=== PATIENT | female | born 1995 | race Caucasian/White ===

== ENCOUNTER → 2025-04-19 07:42 | Outpatient (REF) | payer BC, SELFPAY | LOC: PNTC 07:42 | PROVIDERS: ATTENDING PHYSICIAN Obstetrics & Gynecology | DX: O99.210 Obesity complicating pregnancy, unspecified trimester (principal); O99.320 Drug use complicating pregnancy, unspecified trimester | CPT/HCPCS: 76805 ==

== ENCOUNTER → 2025-05-29 07:36 | Outpatient (REF) | payer BC, SELFPAY | LOC: PNTC 07:36 | PROVIDERS: ATTENDING PHYSICIAN Obstetrics & Gynecology | DX: O99.210 Obesity complicating pregnancy, unspecified trimester (principal); O99.320 Drug use complicating pregnancy, unspecified trimester | CPT/HCPCS: 76811; 76817 ==

== ENCOUNTER → 2025-06-13 13:25 | Outpatient (REF) | payer BC, SELFPAY | LOC: PNTC 13:25 | PROVIDERS: ATTENDING PHYSICIAN Obstetrics & Gynecology | DX: Z34.00 Encounter for supervision of normal first pregnancy, unspecified trimester (principal) | CPT/HCPCS: 76815 ==

== ENCOUNTER → 2025-07-16 15:43 | Outpatient (REF) | payer BC, SELFPAY ==
--- NOTE | 2025-07-16 15:24 | PN.DIAED06 ---
Meal Plan - Gestational
- Breakfast
Gestational Diabetes Meal Plan Name: 2000 calories
Breakfast - Total Carbohydrate (grams): 45 (1 carb serving is 15 grams)
Breakfast - Starch Carbohydrate: 2
Breakfast - Fruit Carbohydrate: 0 (no fruit or juice before noon)
Breakfast - Milk Carbohydrate: 1
Breakfast - Nonstarchy Vegetables: Yes
Breakfast - Meat/Protein: 1 (1 protein serving = 1 oz/7 g)
Breakfast - Fat: 2 (1 fat serving = 5 oz)
- Morning Snack
Morning Snack - Total Carbohydrate (grams): 30
Morning Snack - Starch Carbohydrate: 1
Morning Snack - Fruit Carbohydrate: 0 (no fruit or juice before noon)
Morning Snack - Milk Carbohydrate: 1
Morning Snack - Nonstarchy Vegetables: Yes
Morning Snack - Meat/Protein: 0
Morning Snack - Fat: 0
- Lunch
Lunch - Total Carbohydrate (grams): 45
Lunch - Starch Carbohydrate: 1
Lunch - Fruit Carbohydrate: 1
Lunch - Milk Carbohydrate: 1
Lunch - Nonstarchy Vegetables: Yes
Lunch - Meat/Protein: 2
Lunch - Fat: 2
- Afternoon Snack
Afternoon Snack - Total Carbohydrate (grams): 30
Afternoon Snack - Starch Carbohydrate: 1
Afternoon Snack - Fruit Carbohydrate: 1
Afternoon Snack - Milk Carbohydrate: 0
Afternoon Snack - Nonstarchy Vegetables: Yes
Afternoon Snack - Meat/Protein: 1
Afternoon Snack - Fat: 0
- Dinner
Dinner - Total Carbohydrate (grams): 45
Dinner - Starch Carbohydrate: 2
Dinner - Fruit Carbohydrate: 1
Dinner - Milk Carbohydrate: 0
Dinner - Nonstarchy Vegetables: Yes
Dinner - Meat/Protein: 2
Dinner - Fat: 2
- Evening Snack
Evening Snack - Total Carbohydrate (grams): 45
Evening Snack - Starch Carbohydrate: 1
Evening Snack - Fruit Carbohydrate: 1
Evening Snack - Milk Carbohydrate: 1
Evening Snack - Nonstarchy Vegetables: Yes
Evening Snack - Meat/Protein: 1
Evening Snack - Fat: 0
--- NOTE | 2025-07-17 08:05 | PN.DE ---
Diabetes Education
- -
07/16/2025 GESTATIONAL DIABETES CONSULTATION
Met with patient today for medical nutrition therapy. G1, P0, currently at 29 weeks of gestation, with an SCAR of 09/29/2025.
Explained glucose metabolism in body and what occurs during to cause increase blood sugar. Discussed importance of keeping BS well controlled to avoid complications to the baby during and after (macrosomia, hypoglycemia). Discussed
macronutrients, provided with 2000 fermin GDM meal plan.
Discussed physical activity and importance in lowering glucose values, she states she walks occasionally. Encouraged her to walk daily for at least 30 minutes, especially after meals. She did not present with her Contour Next Gen glucometer,
states that [employer] is out of stock. She stated that she is going out of town until Wednesday tonight. I encouraged her to check at the [email or web address] where she is visiting, inquire about stock of Contour Next Gen supplies and request transfer of
prescription if they can fill the supplies prior to Wednesday. I provided a Contour Next sample kit and gave extra test strips and lancets totalling 20 each. Reviewed proper testing technique, testing sites and testing pattern. She is aware to test
FBS and 2 hr pp each meal. Expected results for FBS <95 mg/dl and 2 hr pp <120 mg/dl. Noted for blood sugar of 116mg/dl 1 hr after breakfast this morning. Log sheet provided for her to record results, she will send a 4-day meal log with all her FBG
and 2hr Post prandial glucose numbers to this office for review. In addition, she will send all her glucose readings [facility] every Wednesday.
She was encouraged to reach out should she require insulin.
== END ==
LOC: DES 15:43
PROVIDERS: ATTENDING PHYSICIAN Obstetrics & Gynecology
DX: O24.419 Gestational diabetes mellitus in pregnancy, unspecified control (principal)
CPT/HCPCS: 99078

== ENCOUNTER 2025-08-01 17:08 | Observation (INO) | payer BC, SELFPAY ==
[2025-08-01 17:27] VITALS: BP 151/103; BMI 36.6
[2025-08-01 18:08] LABS: Hematocrit 32.4 % (37.0-47.0); Hemoglobin 11.3 g/dL (12.0-16.0); Mean Corp Hgb Conc. 34.9 g/dL (33.0-37.0); Mean Corpuscular Volume 89.3 fL (81.0-99.0); Nucleated Red Blood Cells % 0 %; Platelet Count 287 10^3/uL (130-400); Red Cell Dist. Width 13.3 % (11.5-14.5)
[2025-08-01 18:20] LABS: ALT (SGPT) 24 U/L (0-35); AST (SGOT) 24 U/L (14-36); Albumin 3.4 g/dl (3.5-5.0); Alkaline Phosphatase 107 U/L (38-126); Blood Urea Nitrogen 10 mg/dl (7-17); Calcium 9.1 mg/dl (8.4-10.2); Carbon Dioxide 26 mmol/L (22-30); Chloride 103 mmol/L (98-107); Estimated Creatinine Clearance > 125 ml/min; Glucose 118 mg/dl (70-99); Potassium 4.1 mmol/L (3.5-5.1); Sodium 133 mmol/L (135-145); Total Protein 5.8 g/dl (6.3-8.2); eGFR > 60.00
[2025-08-01] MEDS: RHOGAM 300 MCG IM (21:17)
[2025-08-01 21:57] LABS: Glucose - Point of Care 146 mg/dl (70-99)
[2025-08-01] MEDS: HUMULIN N KWIKPEN 8 UNITS SC (22:03)
[2025-08-02 07:18] LABS: Glucose - Point of Care 106 mg/dl (70-99)
[2025-08-02] MEDS: PRENATAL PLUS 1 TABLET PO (10:00)
[2025-08-02] MEDS: ASPIR LOW (ENTERIC COATED) 81 MG PO (10:00)
== END 2025-08-02 10:32 | disposition home or self-care (01) ==
LOC: LDRP 17:08
PROVIDERS: ADMITTING PHYSICIAN Obstetrics & Gynecology
DX: O13.3 Gestational [pregnancy-induced] hypertension without significant proteinuria, third trimester (principal); Z3A.31 31 weeks gestation of pregnancy; O99.213 Obesity complicating pregnancy, third trimester; O24.414 Gestational diabetes mellitus in pregnancy, insulin controlled; Z23 Encounter for immunization
CPT/HCPCS: 76816; 80053; 82570; 82962; 84156; 85025; 86850; 86900; 86901; G0378; J2790

== ENCOUNTER → 2025-08-08 15:33 | Outpatient (REF) | payer BC, SELFPAY ==
[2025-08-08 16:41] LABS: Hematocrit 33.0 % (37.0-47.0); Hemoglobin 11.1 g/dL (12.0-16.0); Mean Corp Hgb Conc. 33.6 g/dL (33.0-37.0); Mean Corpuscular Volume 90.2 fL (81.0-99.0); Nucleated Red Blood Cells % 0 %; Platelet Count 257 10^3/uL (130-400); Red Cell Dist. Width 13.4 % (11.5-14.5)
[2025-08-08 16:44] LABS: Urine Character Clear (Clear)
[2025-08-08 16:56] LABS: Urine Squamous Cell >30 /LPF (Few)
[2025-08-08 16:57] LABS: Urine Red Blood Cell 0-2 /HPF (0-2); Urine White Cell 0-2 /HPF (0-5)
[2025-08-08 17:07] LABS: ALT (SGPT) 26 U/L (0-35); AST (SGOT) 24 U/L (14-36); Albumin 3.4 g/dl (3.5-5.0); Alkaline Phosphatase 121 U/L (38-126); Blood Urea Nitrogen 12 mg/dl (7-17); Calcium 9.0 mg/dl (8.4-10.2); Carbon Dioxide 26 mmol/L (22-30); Chloride 103 mmol/L (98-107); Glucose 119 mg/dl (70-99); Potassium 4.3 mmol/L (3.5-5.1); Sodium 131 mmol/L (135-145); Total Protein 5.9 g/dl (6.3-8.2); eGFR > 60.00
== END ==
LOC: PNTC 15:33
PROVIDERS: Student in an Organized Health Care Education/Training Program; ATTENDING PHYSICIAN Obstetrics & Gynecology
DX: O99.210 Obesity complicating pregnancy, unspecified trimester (principal); O24.424 Gestational diabetes mellitus in childbirth, insulin controlled
CPT/HCPCS: 36415; 59025; 76815; 80053; 81003; 81015; 82570; 84156; 85025

== ENCOUNTER → 2025-08-13 14:33 | Outpatient (REF) | payer BC, SELFPAY | LOC: PNTC 14:33 | PROVIDERS: ATTENDING PHYSICIAN Obstetrics & Gynecology | DX: O99.210 Obesity complicating pregnancy, unspecified trimester (principal); O24.419 Gestational diabetes mellitus in pregnancy, unspecified control | CPT/HCPCS: 59025; 76815 ==

== ENCOUNTER → 2025-08-16 15:30 | Outpatient (REF) | payer BC, SELFPAY ==
[2025-08-16 16:15] LABS: Hematocrit 32.6 % (37.0-47.0); Hemoglobin 11.2 g/dL (12.0-16.0); Mean Corp Hgb Conc. 34.4 g/dL (33.0-37.0); Mean Corpuscular Volume 88.8 fL (81.0-99.0); Nucleated Red Blood Cells % 0 %; Platelet Count 282 10^3/uL (130-400); Red Cell Dist. Width 13.6 % (11.5-14.5)
[2025-08-16 16:35] LABS: ALT (SGPT) 24 U/L (0-35); AST (SGOT) 20 U/L (14-36); Albumin 3.4 g/dl (3.5-5.0); Alkaline Phosphatase 133 U/L (38-126); Blood Urea Nitrogen 11 mg/dl (7-17); Calcium 9.1 mg/dl (8.4-10.2); Carbon Dioxide 23 mmol/L (22-30); Chloride 105 mmol/L (98-107); Glucose 108 mg/dl (70-99); Potassium 4.3 mmol/L (3.5-5.1); Sodium 131 mmol/L (135-145); Total Protein 5.9 g/dl (6.3-8.2); eGFR > 60.00
[2025-08-16 17:29] LABS: Urine Character Slightly Cloudy (Clear)
[2025-08-16 17:55] LABS: Urine Red Blood Cell 0-2 /HPF (0-2); Urine Urothelial Cell 0-2 /LPF (FEW)
== END ==
LOC: PNTC 15:30
PROVIDERS: Student in an Organized Health Care Education/Training Program; ATTENDING PHYSICIAN Obstetrics & Gynecology
DX: O99.210 Obesity complicating pregnancy, unspecified trimester (principal); O24.414 Gestational diabetes mellitus in pregnancy, insulin controlled
CPT/HCPCS: 36415; 59025; 80053; 81003; 81015; 82570; 84156; 85025

== ENCOUNTER → 2025-08-20 13:55 | Outpatient (REF) | payer BC, SELFPAY | LOC: PNTC 13:55 | PROVIDERS: ATTENDING PHYSICIAN Obstetrics & Gynecology | DX: O99.210 Obesity complicating pregnancy, unspecified trimester (principal); O24.414 Gestational diabetes mellitus in pregnancy, insulin controlled | CPT/HCPCS: 59025; 76816 ==

== ENCOUNTER → 2025-08-23 16:00 | Outpatient (REF) | payer BC, SELFPAY ==
[2025-08-23 16:26] LABS: Urine Character Clear (Clear)
[2025-08-23 16:27] LABS: Hematocrit 34.6 % (37.0-47.0); Hemoglobin 11.8 g/dL (12.0-16.0); Mean Corp Hgb Conc. 34.1 g/dL (33.0-37.0); Mean Corpuscular Volume 91.3 fL (81.0-99.0); Nucleated Red Blood Cells % 0 %; Platelet Count 308 10^3/uL (130-400); Red Cell Dist. Width 13.5 % (11.5-14.5)
[2025-08-23 16:46] LABS: ALT (SGPT) 24 U/L (0-35); AST (SGOT) 19 U/L (14-36); Albumin 3.4 g/dl (3.5-5.0); Alkaline Phosphatase 160 U/L (38-126); Blood Urea Nitrogen 9 mg/dl (7-17); Calcium 9.4 mg/dl (8.4-10.2); Carbon Dioxide 27 mmol/L (22-30); Chloride 103 mmol/L (98-107); Glucose 120 mg/dl (70-99); Potassium 4.8 mmol/L (3.5-5.1); Sodium 132 mmol/L (135-145); Total Protein 6.1 g/dl (6.3-8.2); eGFR > 60.00
[2025-08-23 17:02] LABS: Urine Red Blood Cell 0-2 /HPF (0-2); Urine Squamous Cell >30 /LPF (Few)
== END ==
LOC: PNTC 16:00
PROVIDERS: ATTENDING PHYSICIAN Obstetrics & Gynecology
DX: O99.210 Obesity complicating pregnancy, unspecified trimester (principal); O24.414 Gestational diabetes mellitus in pregnancy, insulin controlled
CPT/HCPCS: 36415; 59025; 80053; 81003; 81015; 82570; 84156; 85025

== ENCOUNTER → 2025-08-27 16:23 | Outpatient (REF) | payer BC, SELFPAY | LOC: PNTC 16:23 | PROVIDERS: ATTENDING PHYSICIAN Obstetrics & Gynecology | DX: O99.213 Obesity complicating pregnancy, third trimester (principal); O13.3 Gestational [pregnancy-induced] hypertension without significant proteinuria, third trimester; O24.414 Gestational diabetes mellitus in pregnancy, insulin controlled | CPT/HCPCS: 59025; 76815 ==

== ENCOUNTER → 2025-08-30 15:57 | Outpatient (REF) | payer BC, SELFPAY ==
[2025-08-30 16:38] LABS: Hematocrit 33.7 % (37.0-47.0); Hemoglobin 11.3 g/dL (12.0-16.0); Mean Corp Hgb Conc. 33.5 g/dL (33.0-37.0); Mean Corpuscular Volume 89.9 fL (81.0-99.0); Nucleated Red Blood Cells % 0 %; Platelet Count 289 10^3/uL (130-400); Red Cell Dist. Width 13.5 % (11.5-14.5)
[2025-08-30 17:03] LABS: ALT (SGPT) 27 U/L (0-35); AST (SGOT) 22 U/L (14-36); Albumin 3.4 g/dl (3.5-5.0); Alkaline Phosphatase 172 U/L (38-126); Blood Urea Nitrogen 13 mg/dl (7-17); Calcium 9.8 mg/dl (8.4-10.2); Carbon Dioxide 25 mmol/L (22-30); Chloride 103 mmol/L (98-107); Glucose 93 mg/dl (70-99); Potassium 4.0 mmol/L (3.5-5.1); Sodium 131 mmol/L (135-145); Total Protein 6.1 g/dl (6.3-8.2); eGFR > 60.00
[2025-08-30 17:25] LABS: Urine Character Clear (Clear)
[2025-08-30 18:02] LABS: Urine Squamous Cell >30 /LPF (Few)
[2025-08-30 18:03] LABS: Urine Red Blood Cell 0-2 /HPF (0-2); Urine White Cell 0-2 /HPF (0-5)
== END ==
LOC: PNTC 15:57
PROVIDERS: ATTENDING PHYSICIAN Obstetrics & Gynecology
DX: O99.213 Obesity complicating pregnancy, third trimester (principal); O24.414 Gestational diabetes mellitus in pregnancy, insulin controlled; O13.3 Gestational [pregnancy-induced] hypertension without significant proteinuria, third trimester
CPT/HCPCS: 36415; 59025; 80053; 81003; 81015; 82570; 84156; 85025

== ENCOUNTER → 2025-09-03 15:23 | Outpatient (REF) | payer BC, SELFPAY | LOC: PNTC 15:23 | PROVIDERS: ATTENDING PHYSICIAN Obstetrics & Gynecology | DX: O99.213 Obesity complicating pregnancy, third trimester (principal); O24.414 Gestational diabetes mellitus in pregnancy, insulin controlled; O13.3 Gestational [pregnancy-induced] hypertension without significant proteinuria, third trimester | CPT/HCPCS: 59025; 76815 ==

== ENCOUNTER → 2025-09-06 17:00 | Outpatient (REF) | payer BC, SELFPAY ==
[2025-09-06 17:53] LABS: Urine Character Clear (Clear)
[2025-09-06 18:00] LABS: Hematocrit 31.1 % (37.0-47.0); Hemoglobin 10.7 g/dL (12.0-16.0); Mean Corp Hgb Conc. 34.4 g/dL (33.0-37.0); Mean Corpuscular Volume 89.1 fL (81.0-99.0); Nucleated Red Blood Cells % 0 %; Platelet Count 304 10^3/uL (130-400); Red Cell Dist. Width 13.6 % (11.5-14.5)
[2025-09-06 18:01] LABS: Urine Red Blood Cell 0-2 /HPF (0-2); Urine Squamous Cell 26-30 /LPF (Few)
[2025-09-06 18:10] LABS: ALT (SGPT) 27 U/L (0-35); AST (SGOT) 24 U/L (14-36); Albumin 3.2 g/dl (3.5-5.0); Alkaline Phosphatase 181 U/L (38-126); Blood Urea Nitrogen 12 mg/dl (7-17); Calcium 9.1 mg/dl (8.4-10.2); Carbon Dioxide 21 mmol/L (22-30); Chloride 105 mmol/L (98-107); Glucose 140 mg/dl (70-99); Potassium 4.0 mmol/L (3.5-5.1); Sodium 133 mmol/L (135-145); Total Protein 5.8 g/dl (6.3-8.2); eGFR > 60.00
== END ==
LOC: PNTC 17:00
PROVIDERS: ATTENDING PHYSICIAN Obstetrics & Gynecology
DX: O99.213 Obesity complicating pregnancy, third trimester (principal); O24.414 Gestational diabetes mellitus in pregnancy, insulin controlled; O13.3 Gestational [pregnancy-induced] hypertension without significant proteinuria, third trimester
CPT/HCPCS: 36415; 59025; 80053; 81003; 81015; 82570; 84156; 85025

== ENCOUNTER → 2025-09-10 08:41 | Outpatient (REF) | payer BC, SELFPAY | LOC: PNTC 08:41 | PROVIDERS: ATTENDING PHYSICIAN Obstetrics & Gynecology | DX: O99.213 Obesity complicating pregnancy, third trimester (principal); O99.323 Drug use complicating pregnancy, third trimester; O24.414 Gestational diabetes mellitus in pregnancy, insulin controlled; O10.013 Pre-existing essential hypertension complicating pregnancy, third trimester | CPT/HCPCS: 59025; 76816 ==

== ENCOUNTER 2025-09-12 09:04 | Inpatient (IN) | payer BC, SELFPAY ==
[2025-09-12 09:14] VITALS: BMI 36.7
[2025-09-12 09:22] VITALS: BP 127/87
[2025-09-12] MEDS: LR 1000 IV ×2 (09:45→11:08)
[2025-09-12 10:07] LABS: Albumin 3.2 g/dl (3.5-5.0); Carbon Dioxide 24 mmol/L (22-30)
[2025-09-12 10:12] LABS: Hematocrit 32.4 % (37.0-47.0); Hemoglobin 11.1 g/dL (12.0-16.0); Mean Corp Hgb Conc. 34.3 g/dL (33.0-37.0); Mean Corpuscular Volume 90.8 fL (81.0-99.0); Nucleated Red Blood Cells % 0 %; Platelet Count 317 10^3/uL (130-400); Red Cell Dist. Width 13.6 % (11.5-14.5)
[2025-09-12 10:31] LABS: ALT (SGPT) 30 U/L (0-35); AST (SGOT) 27 U/L (14-36); Alkaline Phosphatase 198 U/L (38-126); Blood Urea Nitrogen 12 mg/dl (7-17); Calcium 9.1 mg/dl (8.4-10.2); Chloride 106 mmol/L (98-107); Estimated Creatinine Clearance > 125 ml/min; Glucose 87 mg/dl (70-99); Sodium 135 mmol/L (135-145); Total Protein 5.9 g/dl (6.3-8.2); eGFR > 60.00
[2025-09-12] MEDS: BRETHINE 250 MCG SC (10:34)
[2025-09-12 10:40] LABS: Potassium 4.1 mmol/L (3.5-5.1)
[2025-09-12] MEDS: TYLENOL 975 MG PO (11:02)
[2025-09-12] MEDS: BICITRA 30 ML PO (11:03)
[2025-09-12] MEDS: ANCEF 10 IV (11:03)
[2025-09-12] MEDS: PITOCIN 30 UNITS/NSS 500 ML IV (14:28)
[2025-09-12] MEDS: TORADOL 15 MG IV (18:37)
[2025-09-13] MEDS: TORADOL 15 MG IV ×3 (00:39→11:40)
[2025-09-13 05:35] LABS: Hematocrit 30.3 % (37.0-47.0); Hemoglobin 10.3 g/dL (12.0-16.0); Mean Corp Hgb Conc. 34.0 g/dL (33.0-37.0); Mean Corpuscular Volume 91.0 fL (81.0-99.0); Platelet Count 249 10^3/uL (130-400); Red Cell Dist. Width 13.4 % (11.5-14.5)
--- NOTE | 2025-09-13 07:11 | W.PN.ANS.POP ---
Anesthesia Post Operative
- Anesthesia Post Op Note
Vital Signs Stable-See Nursing Note: Yes
Airway Patent: Yes
Adequate Pain Control: Yes
Change in Mental Status: No
Current Postoperative Nausea & Vomiting: No
Anesthesia Complications: No
General Anesthetic Recall: No
Unplanned Admission: No
Post Op Hydration Adequate: Yes
[2025-09-13] MEDS: COLACE 100 MG PO ×2 (08:24→19:59)
[2025-09-13] MEDS: WELLBUTRIN XL (24 hour extended release) 150 MG PO (08:24)
[2025-09-13] MEDS: PRENATAL PLUS 1 TABLET PO (08:24)
[2025-09-13] MEDS: TYLENOL 650 MG PO ×2 (11:40→19:59)
[2025-09-13] MEDS: RHOGAM 300 MCG IM (16:41)
[2025-09-13] MEDS: PROCARDIA XL (EXTENDED RELEASE) 30 MG PO (16:42)
[2025-09-13] MEDS: MOTRIN 600 MG PO (19:59)
[2025-09-14] MEDS: TYLENOL 650 MG PO ×3 (02:27→19:53)
[2025-09-14] MEDS: MOTRIN 600 MG PO ×2 (02:28→15:57)
[2025-09-14] MEDS: WELLBUTRIN XL (24 hour extended release) 150 MG PO (08:04)
[2025-09-14] MEDS: PRENATAL PLUS 1 TABLET PO (08:04)
[2025-09-14] MEDS: PROCARDIA XL (EXTENDED RELEASE) 30 MG PO ×2 (08:04→15:58)
[2025-09-14] MEDS: COLACE 100 MG PO ×2 (08:04→19:51)
[2025-09-14 15:51] LABS: Syphilis/T. pallidum Ab Reflex Negative (Negative)
[2025-09-15] MEDS: MOTRIN 600 MG PO (00:30)
[2025-09-15] MEDS: TYLENOL 650 MG PO (00:31)
[2025-09-15] MEDS: COLACE 100 MG PO (08:01)
[2025-09-15] MEDS: PRENATAL PLUS 1 TABLET PO (08:01)
[2025-09-15] MEDS: PROCARDIA XL (EXTENDED RELEASE) 60 MG PO (08:01)
[2025-09-15] MEDS: WELLBUTRIN XL (24 hour extended release) 150 MG PO (08:01)
--- NOTE | 2025-09-15 12:03 | W.DS.TRANS ---
DC Summary - Strickler Attendant
-
Discharge Instructions:
Discharge Diagnosis/Procedures primary cs breech
Instructions:
Stand-Alone Forms: LDRP Delivery
LDRP Hypertensive Disorders
Changes to Home Medications: No
Discharge Medications:
DC Medications w/original date entered in [employer]
magnesium 250 mg tablet 500 mg PO DAILY 01/23/15
prenat.vits,fermin,sgw-wnyv-qgxwd 1 tab PO DAILY 08/01/25
bupropion HCl 150 mg 24 hr tablet, extended release 150 mg PO DAILY 09/12/25
ibuprofen 600 mg tablet 600 mg PO Q6HPRN PRN cramps #90 tabs 09/15/25
nifedipine 60 mg tablet,extended release 60 mg PO DAILY #42 tabs 09/15/25
Home Medication Changes
Pending Results: No
Total time spent discharging patient (in min): 20
== END 2025-09-15 12:45 | disposition home or self-care (01) | DRG 788 ==
LOC: LDRP 09:04
PROVIDERS: ADMITTING PHYSICIAN Obstetrics & Gynecology
PROC: 10D00Z1 Extraction of Products of Conception, Low, Open Approach (ICD-10-PCS; 2025-09-12)
PROC: 3E0334Z Introduction of Serum, Toxoid and Vaccine into Peripheral Vein, Percutaneous Approach (ICD-10-PCS; 2025-09-13)
DX: O24.424 Gestational diabetes mellitus in childbirth, insulin controlled (principal); O99.824 Streptococcus B carrier state complicating childbirth; O32.8XX0 Maternal care for other malpresentation of fetus, not applicable or unspecified; O69.81X0 Labor and delivery complicated by cord around neck, without compression, not applicable or unspecified; O13.4 Gestational [pregnancy-induced] hypertension without significant proteinuria, complicating childbirth; Z3A.37 37 weeks gestation of pregnancy; Z37.0 Single live birth; O26.893 Other specified pregnancy related conditions, third trimester; Z67.11 Type A blood, Rh negative
CPT/HCPCS: 36415; 59412; 80053; 85025; 85027; 85461; 86780; 86850; 86870; 86900; 86901; 88307; J2790